=== PATIENT | female | born 1955 | race African-American/Black ===

== ENCOUNTER → 2016-06-20 | Outpatient (CLI) | payer BC ==
[~2016-06-20] MED LIST: CHOL10003 PO; EMPA25TA PO; GLIM4TAB2 PO; LEVO112T2 PO; LOSA1TAB17 PO; METF750T2 PO; METO-269 PO; MV,C1TAB19 PO; PRAV40TA2 PO
--- NOTE | 2016-06-20 11:17 | CARD ---
APPROVED REPORT EXAM: Two-dimensional and M-mode echocardiogram with Doppler and color Doppler. Other Information Quality : Average Rhythm : NSR INDICATION Abnormal ECG 2D DIMENSIONS RVDd3.1 (2.9-3.5cm)Left Atrium(2D)4.3 (1.6-4.0cm) IVSd1.2 (0.7-1.1cm)Aortic Root(2D)2.5 (2.0-3.7cm) LVDd4.5 (3.9-5.9cm)LVOT Diameter2.0 (1.8-2.4cm) PWd1.2 (0.7-1.1cm)LVDs3.4 (2.5-4.0cm) FS (%) 28.0 %SV45.3 ml LVEF(%)58.6 (>50%) Aortic Valve AoV Peak Hussain.165.4cm/sAoV VTI35.9cm AO Peak GR.10.9mmHgLVOT Peak Hussain.125.9cm/s LVOT VTI 32.35cmAO Mean GR.6mmHg MELISSA (VMAX)2.75ys7EXL (VTI)2.81cm2 Mitral Valve MV E Rrweqzeu79.3cm/sMV DECEL YWJQ568fl MV A Wvmogcru069.5cm/sMV E Mean Gr.2mmHg MV RHQ89dgM/A Ratio0.9 MV A Jkhgbqgi675lkNZR (PHT)3.21cm2 TDI E/Lateral E'12.8E/Medial E'13.4 Pulmonary Valve PV Peak Vpuvcyac049.1cm/sPV Peak Grad.4mmHg RVOT VTI22.7cm Tricuspid Valve TR P. Tjhqsnfh263ln/sRAP FHSGBLHC6uoCz TR Peak Gr.72fbFtEVSM25upVf Pulmonary Vein S1 Ufyukkrp85.5cm/sD2 Otsjagrp57.7cm/s LEFT VENTRICLE The left ventricle is normal size. There is borderline concentric left ventricular hypertrophy. Left ventricle systolic function is normal. The Ejection Fraction is 55-60%. There is normal LV segmental wall motion. The left ventricular diastolic function and filling is normal for age. RIGHT VENTRICLE The right ventricle is normal size. The right ventricular systolic function is normal. ATRIA The left atrium is mildly dilated. The right atrium size is normal. The interatrial septum is intact with no evidence for an atrial septal defect or patent foramen ovale as noted on 2-D or Doppler imagi ng. AORTIC VALVE The aortic valve is mildly calcified. The aortic valve is trileaflet. Doppler and Color Flow revealed no significant aortic regurgitation. There is no significant aortic valvular stenosis. MITRAL VALVE The mitral valve is normal in structure and function. There is no mitral valve stenosis. Doppler and Color Flow revealed mild mitral regurgitation. TRICUSPID VALVE The tricuspid valve is normal in structure and function. Doppler and Color Flow revealed trace tricus pid regurgitation. The PA pressure was estimated at 15 mmHg. There is no tricuspid valve stenosis. PULMONIC VALVE The pulmonic valve is not well visualized. Doppler and Color Flow revealed trivial pulmonic valvular regurgitation. There is no pulmonic valvular stenosis. GREAT VESSELS The aortic root is normal in size. Normal pulmonary venous flow (Doppler). The IVC is normal in size and collapses >50% with inspiration. PERICARDIAL EFFUSION There is no evidence of significant pericardial effusion. Critical Notification Critical Value: No <Conclusion> Left ventricle systolic function is normal. The Ejection Fraction is 55-60%. There is normal LV segmental wall motion. Mild mitral regurgitation. Trace tricuspid regurgitation. The PA pressure was estimated at 15 mmHg. There is no evidence of significant pericardial effusion.
== END | disposition home or self-care (01) ==
LOC: ECHO 07:34
PROVIDERS: ATTEND Internal Medicine Cardiovascular Disease
DX: R94.31 Abnormal electrocardiogram [ECG] [EKG] (principal); I51.7 Cardiomegaly; I34.0 Nonrheumatic mitral (valve) insufficiency; I37.1 Nonrheumatic pulmonary valve insufficiency
CPT/HCPCS: 93306

== ENCOUNTER → 2018-03-13 | Outpatient (CLI) | payer BC ==
[~2018-03-13] MED LIST changes: -LOSA1TAB17 PO; +LOSA1TAB22 PO
--- NOTE | 2018-03-13 10:30 | RAD ---
EXAM: CT Chest without IV contrast CLINICAL HISTORY: CHEST WALL PAIN, RIGHT ANTERIOR X 3-4 MONTHS COMPARISON: None. TECHNIQUE: CT of the chest without intravenous contrast. Axial, coronal and sagittal reformatted images were generated. ---PQRS compliance statement - One or more of the following individualized dose reduction techniques were utilized for this study: 1. Automated exposure control 2. Adjustment of the mA and/or kV according to patient size 3. Use of iterative reconstruction technique--- FINDINGS: Lack of intravenous contrast limits evaluation of solid organs, vasculature, and lymph nodes. Chest: Heart is not enlarged. No pericardial effusion. No thoracic lymphadenopathy. No pleural effusion or pneumothorax. Lingular calcified granuloma seen. No focal parenchymal airspace opacity. No suspicious lung nodule or mass is seen. Visualized Upper abdomen: Visualized upper abdomen is grossly unremarkable Bones: Multilevel degenerative changes of the spine are seen with focal kyphosis of the upper-mid thoracic spine. IMPRESSION: 1. No CT findings to account for the patients right chest wall pain 2. No focal parenchymal airspace opacity. 3. No pleural effusion or pneumothorax. Electronically signed by: Rome Sibley MD (03/13/2018 10:26 AM) [facility]
--- NOTE | 2018-03-14 09:57 | RAD ---
DATE: 03/13/2018 11:45 AM EXAM: MAMMO SARAH SCREENING BILATERAL HISTORY: routine screening evaluation. COMPARISON: 08/20/2010 Bilateral CC and MLO views of the breasts were performed. Bilateral breast tomosynthesis was performed in CC and MLO projections. This study was interpreted with the benefit of Computerized Aided Detection (CAD ). Breast Density: The breast parenchyma is primarily fatty replaced. Breast parenchyma level density A. FINDINGS: Benign calcifications are present. No suspicious masses, microcalcifications or architectural distortion is present to suggest malignancy in either breast. The visualized axillae are unremarkable. IMPRESSION: No mammographic evidence of malignancy. BI-RADS CATEGORY: 2 BENIGN FINDING(S) RECOMMENDED FOLLOW-UP: 12M 12 MONTH FOLLOW-UP Annual screening mammography is recommended, unless clinically indicated sooner based on symptoms or change in physical exam. PQRS compliance statement: Patient information was entered into a reminder system with a target due date 03/14/2019 for the next mammogram. Mammography is a sensitive method for finding small breast cancers, but it does not detect them all and is not a substitute for careful clinical examination. A negative mammogram does not negate a clinically suspicious finding and should not result in delay in biopsying a clinically suspicious abnormality. "Our facility is accredited by the [employer] Mammography [employer]." DENISAD
== END | disposition home or self-care (01) ==
LOC: MRI 08:33
PROVIDERS: ATTEND Nurse Practitioner Gerontology
DX: Z12.31 Encounter for screening mammogram for malignant neoplasm of breast (principal); J84.10 Pulmonary fibrosis, unspecified
CPT/HCPCS: 71250; 77063; 77067

== ENCOUNTER → 2018-12-31 | Outpatient (CLI) | payer BC ==
[~2018-12-31] MED LIST changes: -GLIM4TAB2 PO; +GLIM4TAB4 PO; -METF750T2 PO; +METF750T39 PO
--- NOTE | 2019-01-09 09:49 | SLEEP ---
DATE OF STUDY: 12/31/2018 SLEEP STUDY REFERRING PHYSICIAN: Bro Hdz APRN The patient is 63 years old who weighs 220 pounds with a BMI of 39. The patient's [place] score was 12. The patient underwent diagnostic sleep study performed at [facility]. During the night study, the patient spent 422 minutes in bed and slept for 387 minutes with a sleep efficiency of 92%. Sleep latency was 8 minutes with a REM latency of 99 minutes. Sleep architecture showed normal stage 1 sleep, increased stage 2 sleep, normal slow wave and slightly reduced REM sleep. During the night study, the patient had 4 obstructive apneas, 16 mixed apneas, no central apneas, and 53 hypopneas. The patient's apnea hypopnea index was 11 per hour with a supine index of 9 per hour and a REM index of 43 per hour. EKG monitoring revealed a mean heart rate of 64 beats per minute, no sustained arrhythmias observed. No significant PLMs seen. Nocturnal oximetry study revealed a mean oxygen saturation of 97% with the lowest of 84%. A 2.6% of time oxygen saturation remained less than 90%. Due to low AHI, the patient did not meet the split night criteria for CPAP initiation. IMPRESSION: 1. Mild sleep apnea-hypopnea syndrome with worsening during REM sleep. Total AHI 11 per hour with a REM AHI of 43 per hour. 2. No clinically significant periodic limb movements. 3. No clinically significant nocturnal hypoxia. RECOMMENDATIONS: 1. The patient is clinically symptomatic with an [place] score of 12. I would recommend treating the patient's sleep apnea with either trial of CPAP versus oral appliance. 2. Once the patient is optimally treated, then follow up in 4-6 weeks to assess compliance with treatment and to document clinical improvement. 3. Weight loss is strongly advised. 4. Avoid EXTENSION COURSE COORDINATOR depressants. 5. Caution regarding driving until symptoms of sleep apnea resolves with above recommendations. ZE BEST MD DR: NIKKI/cornelio JOB#: [id number] / [id number] BRO De Jesus APRN
== END | disposition home or self-care (01) ==
LOC: RT 18:50
PROVIDERS: ATTEND Nurse Practitioner Gerontology
DX: G47.33 Obstructive sleep apnea (adult) (pediatric) (principal)
CPT/HCPCS: 95810

== ENCOUNTER 2019-02-11 19:43 | Emergency (ER) | payer BC ==
[~2019-02-11] VITALS: Ht 162.6 cm; Wt 99.8 kg
[2019-02-11 20:46] VITALS: BP 167/75
[2019-02-11] MEDS ORDERED: MUPI22OI2 TP (21:18)
[2019-02-11] MEDS ORDERED: SULF1TAB24 PO (21:18)
--- NOTE | 2019-02-12 05:33 | PHYS DOC ---
Past Medical History Past Medical History: Diabetes-Type II, High Cholesterol, Hypertension, H ypothyroid Past Surgical History: Appendectomy, Tubal ligation Alcohol Use: None Drug Use: None Adult General Chief Complaint Chief Complaint: MECHANICAL FALL HPI HPI Patient is a 63 year old [place] female who presents with concerns of facial swelling and injury after falling 2 days ago [address] cement driveway. Patient states she was taking the garbage can into the road when she slipped striking her face/head off the ground. Patient denies loss of consciousness or persistent headache. She reports facial swelling and abrasions to forehead, nose and right orbit. Patient is not on anticoagulation therapy. Denies headache, dizziness, neck pain or extremity pain. No nausea or vomiting. No other acute symptoms or complaints. Patient has not been evaluated for this complaint prior to today's ED visit. [] Review of Systems Review of Systems ROS as per HPI. All other systems were reviewed and found to be within normal limits, except as documented in this note. Allergies Allergies Allergies Coded Allergies Type Severity Reaction Last Updated Verified No Known Drug Allergies 06/20/16 No Physical Exam Physical Exam Constitutional: Well developed, well nourished, no acute distress, non-toxic appearance. [] HENT: Normocephalic, central forehead, abrasions to forehead, right orbit and nose, no facial bone or nasal bridge deformity, bilateral external ears normal, oropharynx moist, no oral exudates, nose, no septal deviation, hematoma of epistaxis. Impetigo below right nares [] Eyes: PERRLA, EOMI, right orbit contusion. [] Neck: Normal range of motion, no midline tenderness. [] Cardiovascular:Heart rate regular rhythm, no murmur [] Lungs & Thorax: Bilateral breath sounds clear to auscultation [] Abdomen: Bowel sounds normal, soft, no tenderness, no masses, no pulsatile masses. [] Skin: Warm, dry, no erythema, no rash. [] Back: No tenderness, no CVA tenderness. [] Extremities: No tenderness, no cyanosis, no clubbing, ROM intact, no edema. [] Neurologic: Alert and oriented X 3, CN 2-12, normal motor function, normal sensory function, no focal deficits noted. [] Psychologic: Affect normal, judgement normal, mood normal. [] Current Patient Data Vital Signs Vital Signs Date Time Temp Pulse Resp B/P (MAP) Pulse Ox O2 Delivery O2 Flow Rate FiO2 02/11/19 20:46 98.0 67 18 167/75 (105) 97 Room Air 98.0 EKG EKG [] Radiology/Procedures Radiology/Procedures [] Course & Med Decision Making Course & Med Decision Making Pertinent Labs and Imaging studies reviewed. (See chart for details) [Mild facial trauma from mechanical fall 2 days ago without facial bone deformities, headache, dizziness, nausea vomiting or neck pain. Patient has small area of impetigo bellow right nares. Recommendations are for supportive care and PCP/ENT follow-up.] Dragon Disclaimer Dragon Disclaimer This electronic medical record was generated, in whole or in part, using a voice recognition dictation system. Departure Departure Impression: Primary Impression: Impetigo Additional Impressions: Contusion of nose Facial injury Disposition: 01 HOME, SELF-CARE Condition: STABLE Patient Instructions: Facial or Scalp Contusion, Impetigo Additional Instructions: You were evaluated in the emergency department for facial injuries. Please take ibuprofen for pain and oral and topical antibiotics as directed. Follow-up with your PCP for reevaluation of skin infection and ENT physician in 2 weeks if persistent facial swelling, facial pain or difficulty breathing from your nose. Scripts Mupirocin (MUPIROCIN OINTMENT) 22 Gm Oint...g. 1 DEEDEE TP TID for WOUND CARE, #1 TUBE Prov: HEATHER QUIROZ DO 02/11/19 Sulfamethoxazole/Trimethoprim (BACTRIM DS TABLET) 1 Each Tablet 1 TAB PO BID for 10 Days, #20 TAB 0 Refills Prov: HEATHER QUIROZ DO 02/11/19 Problem Qualifiers HEATHER QUIROZ DO Feb 12, 2019 05:33
== END 2019-02-11 21:29 | disposition home or self-care (01) ==
LOC: ER 19:43
DX: S00.33XA Contusion of nose, initial encounter (principal); L01.00 Impetigo, unspecified; E78.00 Pure hypercholesterolemia, unspecified; E11.9 Type 2 diabetes mellitus without complications; I10 Essential (primary) hypertension; E03.9 Hypothyroidism, unspecified; Z90.89 Acquired absence of other organs; Z98.51 Tubal ligation status; W01.198A Fall on same level from slipping, tripping and stumbling with subsequent striking against other object, initial encounter; Y93.89 Activity, other specified; Y92.488 Other paved roadways as the place of occurrence of the external cause; Y99.8 Other external cause status
CPT/HCPCS: 99283